=== PATIENT | male | born 1980 | race African-American/Black ===

== ENCOUNTER 2020-05-01 14:46 | Inpatient (IN) | payer MEDICAID, OTHER ==
[~2020-05-01] VITALS: Ht 180.3 cm; Wt 83.9 kg
[2020-05-01] MEDS ORDERED: cloNIDine HCL 0.1 MG TAB PO ONE ×3 (15:15→19:45)
[2020-05-01 16:20] LABS: Basophils # (auto) 0.1 10 ^3/uL (0-0.2); Basophils % (auto) 1.4 % (0.0-2.0); Eosinophils # (auto) 0.2 10 ^3/uL (0-0.8); Eosinophils % (auto) 2.8 % (0.0-7.0); Hematocrit 40.4 % (41.0-53.0); Hemoglobin 13.4 g/dL (13.5-17.5); Lymphocytes # (auto) 1.6 10 ^3/uL (0.4-5.4); Lymphocytes % (auto) 23.5 % (10.0-50.0); Mean Corpuscular Hemoglobin 28.2 pg (28.0-32.0); Mean Corpuscular Hgb Conc. 33.2 g/dL (32.0-36.0); Monocytes # (auto) 0.6 10 ^3/uL (0-1.3); Monocytes % (auto) 8.4 % (0.0-12.0); Neutrophils # (auto) 4.2 10 ^3/uL (1.6-8.6); Neutrophils % (auto) 63.9 % (37.0-80.0); Nucleated Red Blood Cells % 0.2 %; Platelet Count (auto) 80 10^3/uL (140-450); Red Blood Cells 4.76 10^6/uL (4.5-5.90); White Blood Cell 6.6 10^3/uL (4.4-10.8)
[2020-05-01 16:40] LABS: Alanine Aminotransferase 26 U/L (16-61); Albumin 3.6 g/dL (3.4-5.0); Anion Gap 7 (5-15); Aspartate Aminotransferase 24 U/L (15-37); BUN/Creatinine Ratio 8.9; Blood Urea Nitrogen 25 mg/dL (7-18); Calcium 8.8 mg/dL (8.5-10.1); Carbon Dioxide 28 mmol/L (21-32); Chloride 102 mmol/L (98-107); GFR African American 33 mL/min; GFR Non-African American 27 mL/min; Glucose 102 mg/dL (74-106); Sodium 137 mmol/L (136-145)
[2020-05-01 16:44] LABS: Alkaline Phosphatase 58 U/L (45-117); Bilirubin, Total 1.3 mg/dL (0.2-1.0); Total Protein 7.9 g/dL (6.4-8.2)
[2020-05-01 16:53] LABS: Potassium 2.8 mmol/L (3.5-5.1)
[2020-05-01] MEDS ORDERED: LABETALOL HCL 200 MG TAB PO ONE (17:00)
[2020-05-01] MEDS ORDERED: POTASSIUM CHL 20MEQ/100ML 100 ML IV SCH (17:30)
[2020-05-01 18:21] LABS: Urine Bacteria NONE SEEN /hpf (None Seen); Urine Blood 2+ /uL (Negative); Urine Specific Gravity 1.016 (1.001-1.035); Urine WBC 2 /hpf (0 - 3)
[2020-05-01 18:28] LABS: Alcohol, Urine < 3.0 mg/dL (0-10); Amphetamine Screen, Urine NEGATIVE (NEGATIVE); Barbiturate Scree,Urine NEGATIVE (NEGATIVE); Benzodiazephine Screen, Urine NEGATIVE (NEGATIVE); Cocaine Screen, Urine NEGATIVE (NEGATIVE); Opiate Scree,Urine NEGATIVE (NEGATIVE); Phencyclidine Screen, Urine NEGATIVE (NEGATIVE)
[2020-05-01 19:13] LABS: Cannabinoid Screen, Urine POSITIVE (NEGATIVE)
[2020-05-01] MEDS ORDERED: hydrALAZINE HCL 10 MG TAB PO ONE (19:45)
[2020-05-01 21:00] VITALS: BP 170/116
[2020-05-01] MEDS ORDERED: SODIUM CHLORIDE 0.9% 1,000 ML IV SCH (22:24)
[2020-05-01] MEDS ORDERED: HYDROcodone-ACET 5/325MG TAB PO PRN (22:30)
[2020-05-01] MEDS ORDERED: ACETAMINOPHEN 325 MG TAB PO PRN (22:30)
[2020-05-01] MEDS ORDERED: NIFEdipine ER 30 MG TAB PO ONE (22:30)
[2020-05-01] MEDS ORDERED: ONDANSETRON HCL 4 MG/2 ML VIAL IV PRN (22:30)
[2020-05-01] MEDS ORDERED: hydrALAZINE HCL 20 MG/ML VL IV PRN (22:30)
[2020-05-01] MEDS ORDERED: LORazepam 0.5 MG TAB PO PRN (22:30)
[2020-05-01] MEDS ORDERED: DOCUSATE SOD 100 MG CAP PO PRN (22:30)
[2020-05-01] MEDS ORDERED: NIFEdipine 10 MG CAP PO ONE (22:45)
[2020-05-02] MEDS ORDERED: NIFEdipine ER 30 MG TAB PO SCH (10:00)
== END 2020-05-01 22:50 | disposition left against medical advice (07) | DRG 199 ==
LOC: ER 14:46 → EDBD 14:46 → OVERFLOW 14:47
PROVIDERS: ADMIT Hospitalist; ATTEND Hospitalist
DX: I16.0 Hypertensive urgency (principal); F17.200 Nicotine dependence, unspecified, uncomplicated; I10 Essential (primary) hypertension; H53.8 Other visual disturbances; N17.9 Acute kidney failure, unspecified; Z53.29 Procedure and treatment not carried out because of patient's decision for other reasons
CPT/HCPCS: 36415; 70450; 80053; 80307; 81001; 84484; 85025; G0378; J3480

== ENCOUNTER 2020-05-05 17:20 | Inpatient (IN) | payer MEDICAID ==
[~2020-05-05] VITALS: Ht 180.3 cm; Wt 87.9 kg
[2020-05-05] MEDS ORDERED: cloNIDine HCL 0.1 MG TAB ONE (17:43)
[2020-05-05] MEDS ORDERED: cloNIDine HCL 0.1 MG TAB PO ONE (17:45)
[2020-05-05] MEDS ORDERED: HYDR10TA26 PO (17:51)
[2020-05-05] MEDS ORDERED: traMADol HCL 50 MG TAB PO ONE (18:00)
[2020-05-05 19:08] LABS: Basophils # (auto) 0.1 10 ^3/uL (0-0.2); Basophils % (auto) 1.1 % (0.0-2.0); Eosinophils # (auto) 0.2 10 ^3/uL (0-0.8); Eosinophils % (auto) 2.5 % (0.0-7.0); Hematocrit 38.3 % (41.0-53.0); Hemoglobin 13.1 g/dL (13.5-17.5); Lymphocytes # (auto) 1.6 10 ^3/uL (0.4-5.4); Lymphocytes % (auto) 21.1 % (10.0-50.0); Mean Corpuscular Hemoglobin 28.9 pg (28.0-32.0); Mean Corpuscular Hgb Conc. 34.3 g/dL (32.0-36.0); Mean Corpuscular Volume 84.4 fL (80.0-100.0); Monocytes # (auto) 0.5 10 ^3/uL (0-1.3); Monocytes % (auto) 6.5 % (0.0-12.0); Neutrophils # (auto) 5.3 10 ^3/uL (1.6-8.6); Neutrophils % (auto) 68.8 % (37.0-80.0); Nucleated Red Blood Cells % 0.1 %; Platelet Count (auto) 114 10^3/uL (140-450); Red Blood Cells 4.54 10^6/uL (4.5-5.90); White Blood Cell 7.7 10^3/uL (4.4-10.8)
[2020-05-05 19:27] LABS: Albumin 3.8 g/dL (3.4-5.0); Calcium 8.9 mg/dL (8.5-10.1); Potassium 3.2 mmol/L (3.5-5.1)
[2020-05-05 19:31] LABS: BUN/Creatinine Ratio 7.5; Bilirubin, Total 0.8 mg/dL (0.2-1.0); Total Protein 8.1 g/dL (6.4-8.2)
[2020-05-05] MEDS ORDERED: ONDANSETRON HCL 4 MG/2 ML VIAL IV ONE (20:00)
[2020-05-05] MEDS ORDERED: hydrALAZINE HCL 20 MG/ML VL IV ONE (20:00)
[2020-05-05] MEDS ORDERED: MORPHINE SULFATE 4 MG/ML SYR/VIAL IV ONE (20:00)
[2020-05-05] MEDS ORDERED: ENALAPRILAT 1.25 MG/ML-1ML VIAL IV ONE (20:45)
[2020-05-05] MEDS ORDERED: MORPHINE SULF INJ 2 MG/ML SYRINGE 1ML IV PRN (20:45)
[2020-05-05] MEDS ORDERED: NITROGLYCERIN 0.4 MG SL TAB SL PRN (20:45)
[2020-05-05] MEDS ORDERED: TEMAZEPAM 15 MG CAP PO PRN (20:45)
[2020-05-05] MEDS ORDERED: ONDANSETRON HCL 4 MG/2 ML VIAL IV PRN (20:45)
[2020-05-05] MEDS ORDERED: ACETAMINOPHEN 325 MG TAB PO PRN (20:45)
[2020-05-05] MEDS: hydrALAZINE HCL 25 MG TAB PO SCH (22:00)
[2020-05-05] MEDS: FAMOTIDINE 20 MG TAB PO SCH (22:07)
[2020-05-06] MEDS: cloNIDine HCL 0.1 MG TAB PO PRN ×2 (05:28→17:14)
[2020-05-06] MEDS: hydrALAZINE HCL 25 MG TAB PO SCH (09:46)
[2020-05-06] MEDS ORDERED: NIFEdipine ER 30 MG TAB PO SCH (10:00)
[2020-05-06] MEDS ORDERED: POTASSIUM CHL 20 Meq TABLET PO ONE (10:45)
[2020-05-06] MEDS ORDERED: traMADol HCL 50 MG TAB PO PRN (12:00)
[2020-05-06 13:01] LABS: Urine Bacteria NONE SEEN /hpf (None Seen); Urine Blood Negative /uL (Negative); Urine Specific Gravity 1.016 (1.001-1.035); Urine WBC <1 /hpf (0 - 3)
[2020-05-06 13:17] LABS: Alcohol, Urine < 3.0 mg/dL (0-10); Amphetamine Screen, Urine NEGATIVE (NEGATIVE); Barbiturate Scree,Urine NEGATIVE (NEGATIVE); Benzodiazephine Screen, Urine NEGATIVE (NEGATIVE); Cannabinoid Screen, Urine POSITIVE (NEGATIVE); Cocaine Screen, Urine NEGATIVE (NEGATIVE); Opiate Scree,Urine POSITIVE (NEGATIVE); Phencyclidine Screen, Urine NEGATIVE (NEGATIVE)
[2020-05-06 15:10] VITALS: BP 155/95
--- NOTE | 2020-05-06 16:30 | NUR ---
Patient resting in bed with eyes closed Respirations even and unlabored on room air, no distress noted. Call light within reach.
[2020-05-06] MEDS ORDERED: LOSARTAN POTASSIUM 50 MG TAB PO ONE (16:45)
[2020-05-06 17:00] VITALS: BP 176/98
--- NOTE | 2020-05-06 17:00 | NUR ---
Dr. Rodriguez called this RN. POC discussed.
--- NOTE | 2020-05-06 17:03 | NUR ---
Called lab to add ordered lab tests to collected urine. RN to be contacted by assistant laboratory director if new specimen is to be collected.
--- NOTE | 2020-05-06 18:50 | NUR ---
Closing note Patient resting in bed with even and unlabored respirations, no distress noted. Fall precautions in place with call light within reach.
--- NOTE | 2020-05-06 19:15 | NUR ---
Care endorsed to BAILEY Poe.
--- NOTE | 2020-05-06 20:00 | NUR ---
Opening Shift Note Assumed care of patient. Awake, alert and oriented x4. No S/S of distress/SOB or pain. Pt is on room air with even and unlabored respirations. Instructed on POC and to call for assist PRN. Bed locked, in lowest position, call light within reach, side rails up x2. Will continue to monitor for changes Q1hr and PRN.
[2020-05-06 22:00] VITALS: BP 155/97
[2020-05-06] MEDS: FAMOTIDINE 20 MG TAB PO SCH (22:05)
[2020-05-07 05:00] VITALS: BP 151/94
[2020-05-07 06:33] LABS: Basophils # (auto) 0.1 10 ^3/uL (0-0.2); Basophils % (auto) 1.3 % (0.0-2.0); Eosinophils # (auto) 0.4 10 ^3/uL (0-0.8); Eosinophils % (auto) 5.9 % (0.0-7.0); Hematocrit 35.6 % (41.0-53.0); Lymphocytes # (auto) 1.8 10 ^3/uL (0.4-5.4); Lymphocytes % (auto) 28.5 % (10.0-50.0); Mean Corpuscular Hemoglobin 28.9 pg (28.0-32.0); Mean Corpuscular Hgb Conc. 33.8 g/dL (32.0-36.0); Mean Corpuscular Volume 85.4 fL (80.0-100.0); Monocytes # (auto) 0.7 10 ^3/uL (0-1.3); Monocytes % (auto) 10.5 % (0.0-12.0); Neutrophils # (auto) 3.4 10 ^3/uL (1.6-8.6); Neutrophils % (auto) 53.8 % (37.0-80.0); Nucleated Red Blood Cells % 0.3 %; Platelet Count (auto) 106 10^3/uL (140-450); Red Blood Cells 4.16 10^6/uL (4.5-5.90); Red Cell Distribution Width 15.1 % (11.8-14.3); White Blood Cell 6.2 10^3/uL (4.4-10.8)
[2020-05-07 06:48] LABS: Albumin 3.3 g/dL (3.4-5.0); Calcium 8.6 mg/dL (8.5-10.1); Magnesium 2.6 mg/dL (1.6-2.6); Potassium 3.6 mmol/L (3.5-5.1)
[2020-05-07 06:54] LABS: BUN/Creatinine Ratio 10.2; Bilirubin, Total 0.5 mg/dL (0.2-1.0); Total Protein 6.6 g/dL (6.4-8.2); Uric Acid 7.6 mg/dL (3.5-7.2)
[2020-05-07] MEDS ORDERED: NIFEdipine ER 30 MG TAB PO SCH (10:00)
[2020-05-07] MEDS ORDERED: LOSARTAN POTASSIUM 50 MG TAB PO SCH (10:00)
[2020-05-07] MEDS: cloNIDine HCL 0.1 MG TAB PO PRN (10:43)
--- NOTE | 2020-05-07 10:43 | NUR ---
BP: 1000 MEDS GIVEN ORDERED. RE-CHECK DONE AT THIS TIME. BP 178/111MMHG. CLONIDINE ADMINISTERED ORDERED WILL RE-CHECK PER PROTOCOL.
--- NOTE | 2020-05-07 11:41 | NUR ---
BP NOW 152/97MMHG.
--- NOTE | 2020-05-07 12:36 | NUR ---
MD ELISABET MORALES
--- NOTE | 2020-05-07 14:00 | NUR ---
URINE COLLECTED AND SENT TO LAB.
--- NOTE | 2020-05-07 14:12 | NUR ---
MD MARQUEZ RE-CALLED FOR CARDIOLOGY CONSULT.
--- NOTE | 2020-05-07 15:00 | NUR ---
EK LEAD EKG COMPLETED AND GIVEN TO MD BERKOWITZ.
[2020-05-07 15:53] LABS: Protein, Urine 75.7 mg/dL (0.0-11.9)
[2020-05-07 16:00] VITALS: BP 151/96
--- NOTE | 2020-05-07 16:40 | NUR ---
NEON SIGN SERVICER AT BEDSIDE.
--- NOTE | 2020-05-07 18:45 | NUR ---
CARE ENDORSED TO NOC RN.
--- NOTE | 2020-05-07 19:42 | NUR ---
RECEIVED PATIENT FROM DAY SHIFT RN. PATIENT RESTING IN BED. NO S/S OF DISTRESS NOTED. DENIED PAIN AND HEADACHE FOR NOW. POC INSTRUCTED AND ENCOURAGED PATIENT TO CALL FOR REPLENISHMENT SPECIALIST IF NEEDED. BED IN LOWEST POSITION WITH SIDE RAILS UP X 2. CALL LEWIS WITHIN REACH. CONTINUE TO MONITOR FOR CHANGES Q1H AND PRN.
[2020-05-07] MEDS: FAMOTIDINE 20 MG TAB PO SCH (21:58)
[2020-05-07 22:00] VITALS: BP 151/99
[2020-05-07] MEDS ORDERED: ATORVASTATIN 20 MG TAB PO SCH (22:00)
--- NOTE | 2020-05-07 22:00 | NUR ---
ORAL MEDICATIONS GIVEN ORDERED. EDUCATED PATIENT ON S/S OF SIDE EFFECTS OF MEDICATION. CONTINUE TO MONITOR.
--- NOTE | 2020-05-08 03:22 | NUR ---
PATIENT SLEEPING. NO S/S OF DISTRESS NOTED. CONTINUE TO MONITOR.
[2020-05-08 05:00] VITALS: BP 169/108
[2020-05-08] MEDS: cloNIDine HCL 0.1 MG TAB PO PRN (05:18)
--- NOTE | 2020-05-08 05:21 | NUR ---
BP 169/108, PRN MEDICATION GIVEN ORDERED. RE-EDUCATED PATIENT ON S/S OF SIDE EFFECTS OF MEDICATION. PATIENT VERBALIZED UNDERSTANDING. CONTINUE TO MONITOR.
--- NOTE | 2020-05-08 06:15 | NUR ---
REASSESSED BP 151/93. CONTINUE TO MONITOR.
--- NOTE | 2020-05-08 08:00 | NUR ---
Opening Shift Note Assumed care of patient, awake and alert. No S/S of distress/SOB or pain. Instructed on POC and to call for assist PRN. Bed at lowest locked position and call light within reach. Will continue to monitor for changes Q1hr and PRN.
[2020-05-08 09:00] VITALS: BP 157/97
[2020-05-08] MEDS ORDERED: LABETALOL HCL 200 MG TAB PO SCH ×2 (10:00)
[2020-05-08] MEDS ORDERED: NIFEdipine ER 30 MG TAB PO SCH (10:00)
--- NOTE | 2020-05-08 10:21 | NUR ---
Dr. Gordon at bedside, per , patient is cleared from cardiology's stand point with the new medication Entresto, please see MAR. Addendum: 05/08/20 at 1022 by Kaitlyn Wright RN *Dr. Broussard
[2020-05-08 12:08] LABS: Potassium 3.4 mmol/L (3.5-5.1)
[2020-05-08 12:13] LABS: BUN/Creatinine Ratio 10.2; Calcium 8.6 mg/dL (8.5-10.1)
[2020-05-08 13:25] VITALS: BP 155/105
[2020-05-08] MEDS ORDERED: HYDR-2691 PO (14:10)
[2020-05-08] MEDS ORDERED: SACU1TAB PO (14:10)
[2020-05-08] MEDS ORDERED: ATOR20TA50 PO (14:10)
[2020-05-08] MEDS ORDERED: NIFE1TAB31 PO (14:10)
[2020-05-08] MEDS ORDERED: LABE200T6 PO (14:10)
[2020-05-08] MEDS ORDERED: hydrALAZINE HCL 20 MG/ML VL IV ONE (14:15)
--- NOTE | 2020-05-08 16:15 | NUR ---
Discharge instructions given as ordered. Encourage to follow up with PMD as instructed. All questions and concerns addressed. Patient verbalized understanding. IV removed with catheter intact, pressure dressing applied. Telemetry unit returned to ICU. Patient ambulated to vehicle with all personal belongings, accompanied by this nurse . No distress noted at time of departure.
[2020-05-08] MEDS ORDERED: SACUBITRIL-VALSARTAN 24mg/26mg TAB PO SCH (22:00)
[2020-05-08] MEDS ORDERED: hydrALAZINE HCL 25 MG TAB PO SCH (22:00)
[2020-05-09 13:43] LABS: Hepatitis B Surface Antigen Negative (Negative); Hepatitis C Antibody Negative (Negative)
== END 2020-05-08 16:14 | disposition home or self-care (01) | DRG 199 ==
LOC: ER 17:20 → TELE 17:21 → TELE-WESTW 05-06 13:34
PROVIDERS: ADMIT Nurse Practitioner; ATTEND Internal Medicine
DX: I16.0 Hypertensive urgency (principal); N18.3 Chronic kidney disease, stage 3 (moderate); D64.9 Anemia, unspecified; E78.5 Hyperlipidemia, unspecified; E87.6 Hypokalemia; F12.90 Cannabis use, unspecified, uncomplicated; I13.0 Hypertensive heart and chronic kidney disease with heart failure and stage 1 through stage 4 chronic kidney disease, or unspecified chronic kidney disease; N17.0 Acute kidney failure with tubular necrosis; I50.42 Chronic combined systolic (congestive) and diastolic (congestive) heart failure; Z80.9 Family history of malignant neoplasm, unspecified; Z82.49 Family history of ischemic heart disease and other diseases of the circulatory system; Z87.891 Personal history of nicotine dependence
CPT/HCPCS: 36415; 71045; 76775; 80048; 80053; 80061; 80307; 81001; 82088; 82306; 82384; 82570; 83036; 83520; 83735; 83880; 83970; 84156; 84244; 84300; 84443; 84484; 84550; 85025; 86038; 86160; 86256; 86803; 87340; 93005; 93306; G0378; J2405